=== PATIENT | male | born 1945 | race Hispanic/Latino ===

== ENCOUNTER 2021-05-09 18:02 | Emergency (ER) | payer MEDICARE, OTHER ==
[2021-05-09] MEDS ORDERED: Morphine 4 MG/ML VIAL ONE (18:34)
[2021-05-09] MEDS ORDERED: Lidocaine Viscous Sol 2% 15 ml UD Cup ONE (18:35)
[2021-05-09] MEDS ORDERED: hydrALAZINE 20 MG/ML VIAL ONE (18:35)
[2021-05-09] MEDS ORDERED: Mag-Al 1200 mg/1200 mg/30 ML UDCUP ONE (18:35)
[2021-05-09 18:37] LABS: #Basophils 0.1 thou/uL (0.0-0.2); #Eosinphils 0.1 thou/uL (0.0-0.7); #Lymphocytes 1.5 thou/uL (1.20-3.40); #Monocytes 0.7 thou/uL (0.11-0.59); #Neutrophils 3.6 thou/uL (1.40-6.50); %Basophils 1.3 % (0.0-1.0); %Lymphocytes 25.3 % (21.0-51.0); %Monocytes 11.3 % (0.0-10.0); %Neutrophils 60.2 % (42.0-75.0); Hemoglobin 15.8 g/dL (14.0-18.0); Mean Corpuscular HGB CONC 33.6 g/dL (32.0-36.0); Mean Corpuscular Hemoglobin 31.6 pg (27.0-31.0); Mean Platelet Volume 8.2 fL (7.4-10.4); Platelet Count 193 thou/uL (130-400); RBC Distribution Width 12.2 % (11.5-14.5)
[2021-05-09] MEDS ORDERED: diphenhydrAMINE 50 MG/ML VIAL ONE (18:47)
[2021-05-09 18:55] LABS: ALT (SGPT) 19 U/L (8-55); AST (SGOT) 18 U/L (5-34); Albumin 4.3 g/dL (3.4-4.8); Alkaline Phosphatase 70 U/L (40-110); Anion Gap 10 mmol/L (10-20); BUN (Urea Nitrogen) 13 mg/dL (8.4-25.7); Bilirubin, Total 1.1 mg/dL (0.2-1.2); Calc. Creatinine Clearance 0 mL/min (70-130); Calcium 9.7 mg/dL (7.8-10.44); Carbon Dioxide 27 mmol/L (23-31); Chloride 104 mmol/L (98-107); Globulin 3.3 g/dL (2.4-3.5); Glucose 113 mg/dL (83-110); Potassium 3.8 mmol/L (3.5-5.1); Protein, Total 7.6 g/dL (5.8-8.1); Sodium 137 mmol/L (136-145)
== END 2021-05-09 20:44 | disposition home or self-care (01) ==
LOC: ERS 18:02
DX: R10.13 Epigastric pain (principal); I10 Essential (primary) hypertension; E78.5 Hyperlipidemia, unspecified; K21.9 Gastro-esophageal reflux disease without esophagitis; Z79.899 Other long term (current) drug therapy
CPT/HCPCS: 71275; 74174; 80053; 83605; 83880; 84484; 85025; 93005; 96374; 96375; J0360; J1200; J2270